=== PATIENT | male | born 1955 | race African-American/Black ===

== ENCOUNTER 2022-03-28 19:34 | Inpatient (IN) | payer MEDICAID ==
[~2022-03-28] VITALS: Ht 172.7 cm; Wt 64.0 kg
--- NOTE | 2022-03-28 19:45 | NUR ---
RYAN FROM [facility] C/O G TUBE OUT OF PLACE. PATIENT AAOX1. CAME WITH NC AT 2LPM. PATIENT HAS IFC ON THE GTUBE SITE TO KEEP IT OPEN. ATTACHED TO MONITOR. VITALS CHECKED.
--- NOTE | 2022-03-28 19:55 | NUR ---
DR DONOHUE ATTEMPTED TO INSERT THE G TUBE SIZES F16 AND F14. THERE WAS A RESISTANCE WHEN HE TRIED TO MANEUVER AND PUSHED. GTUBE INSERTION WAS UNSUCCESSFUL. SO PATIENT IS FOR ADMISSION.
[2022-03-28] MEDS ORDERED: DIATR MEGLU/DIATRIZOATE SODIUM 30 ML BOTTLE (GASTROGRAPHIN) ONE (20:00)
--- NOTE | 2022-03-28 20:00 | NUR ---
EKG DONE AT BEDSIDE
--- NOTE | 2022-03-28 20:28 | NUR ---
SEEN BY BRENDEN NAVA AT BEDSIDE
--- NOTE | 2022-03-28 20:40 | NUR ---
IV CANNULA G18 INSERTED ON RIGHT AC. BLOOD DRAWN AND SENT TO LAB
[2022-03-28 20:57] LABS: CALCIUM, SERUM 9.2 mg/dL (8.5-10.1); CREATININE 0.7 mg/dL (0.6-1.3); POTASSIUM 3.4 mmol/L (3.5-5.1)
[2022-03-28 21:00] LABS: BASOPHILS % (AUTO) 0.3 % (0.0-2.0); EOSINOPHILS % (AUTO) 1.2 % (0.0-6.0); HEMATOCRIT 24 % (39-51); HEMOGLOBIN 7.4 g/dL (13.5-17.5); MEAN CORPUSCULAR HGB CONC 30 g/dl (31.0-36.0); MEAN CORPUSCULAR VOLUME 77 fL (80-96); MONOCYTES # (AUTO) 0.3 K/uL (0.1-1.30); MONOCYTES % (AUTO) 4.7 % (2.0-12.0); NEUTROPHILS # (AUTO) 5.6 K/uL (1.8-8.9); NEUTROPHILS % (AUTO) 79.8 % (43.0-81.0); PLATELET COUNT (AUTO) 318 K/uL (150-450); RED BLOOD CELL COUNT(AUTO) 3.15 MIL/uL (4.5-6.0); WHITE BLOOD COUNT (AUTO) 7.1 K/uL (4.3-11.0)
[2022-03-28] MEDS ORDERED: ACETAMINOPHEN 650 MG/SUPP.RECT RC PRN (21:30)
[2022-03-28] MEDS ORDERED: MORPHINE SULFATE INJ 2 MG/ML DISP.SYRIN IV PRN (21:30)
[2022-03-28] MEDS ORDERED: MAGNESIUM HYDROXIDE 30 ML UDC PO PRN (21:30)
[2022-03-28] MEDS ORDERED: ONDANSETRON HCL/PF 4 MG/2 ML VIAL IVP PRN (21:30)
--- NOTE | 2022-03-28 21:42 | NUR ---
COVID SWAB COLLECTED
--- NOTE | 2022-03-28 22:06 | NUR ---
URINE SPECIMEN SENT TO LAB
[2022-03-28 22:56] LABS: BILIRUBIN,URINE NEGATIVE (NEGATIVE); COLOR,URINE DARK YELLOW (YELLOW); LEUKOCYTE ESTERASE ,URINE MODERATE (NEGATIVE); NITRITE, URINE NEGATIVE (NEGATIVE); PROTEIN,URINE 100 mg/dl (NEGATIVE); UGLUCOSE NEGATIVE (NEGATIVE)
[2022-03-28 23:03] LABS: BACTERIA,URINE Rare /HPF (None Seen); RBC,URINE 0-2 /HPF (0-2); SQUAMOUS EPITHELIAL CELL,UR Few /HPF (None Seen)
--- NOTE | 2022-03-28 23:22 | NUR ---
REPORT GIVEN TO KEI ZHANG
--- NOTE | 2022-03-28 23:27 | NUR ---
PATIENT WHEELED TO ROOM
[2022-03-28 23:35] VITALS: BP 131/80
[2022-03-28] MEDS: IV D5/ 0.9% NACL 1,000 ML IV PRN (23:35)
[2022-03-29] MEDS: ENOXAPARIN SODIUM 40 MG/0.4 ML DISP.SYRIN SQ SCH ×2 (01:47→20:42)
--- NOTE | 2022-03-29 05:41 | NUR ---
RN CLOSING NOTES: RECEIVED FROM THE ER AT 2330 LAST NIGHT DX: DISLODGED GT FROM [facility] NONVERBAL LEFT EYE LI WILL OPEN WILL OPEN WHEN NURSE IS TALKING LOUDLY NOTED RIGHT ORBITAL EYELID SWOLLEN AND EYE NOT OPENING RIGHT EYE PUPIL RESPONDED TO LIGHT - SLOWLY SIZE 3 PUPIL RIGHT ARM FLACCED AND THE HAND SWOLLEN 2+ PLACE ON A PILLOW TO ELEVATE LEFT ARM MOVES FULL RANGE NEEDS MAX ASSIST WHEN TURNED AND CLEANED AND REPOITIONED SACRAL AREAS WITH EXCORIATION NPO ORDERED GI CONSULT ORDERED TO REPLACE PULLED OUT GT
[2022-03-29 06:45] LABS: BASOPHILS % (AUTO) 0.3 % (0.0-2.0); EOSINOPHILS % (AUTO) 1.8 % (0.0-6.0); HEMATOCRIT 24 % (39-51); LYMPHOCYTES # (AUTO) 0.9 K/uL (0.8-4.8); LYMPHOCYTES % (AUTO) 14.4 % (20.0-44.0); MEAN CORPUSCULAR HGB CONC 30 g/dl (31.0-36.0); MEAN CORPUSCULAR VOLUME 77 fL (80-96); MONOCYTES # (AUTO) 0.4 K/uL (0.1-1.30); MONOCYTES % (AUTO) 6.1 % (2.0-12.0); NEUTROPHILS % (AUTO) 77.4 % (43.0-81.0); PLATELET COUNT (AUTO) 312 K/uL (150-450); RED BLOOD CELL COUNT(AUTO) 3.07 MIL/uL (4.5-6.0); WHITE BLOOD COUNT (AUTO) 6.5 K/uL (4.3-11.0)
[2022-03-29 07:01] LABS: CALCIUM, SERUM 9.2 mg/dL (8.5-10.1); CREATININE 0.6 mg/dL (0.6-1.3); PHOSPHORUS 2.8 mg/dL (2.5-4.9); POTASSIUM 3.2 mmol/L (3.5-5.1)
--- NOTE | 2022-03-29 07:32 | NUR ---
RN NOTES - CRITICAL VALUE RECEIVED A CALL AT 0719 FROM LAB REGARDING HGB OF 7 FROM 7.4, REPORTED TO FRANCESCA PALMA AT 0732, ACKNOWLEDGED, NO NEW ORDER GIVEN.
--- NOTE | 2022-03-29 07:35 | NUR ---
MS RN OPENING NOTES RECEIVED PATIENT IN LYING IN BED, NONVERBAL LEFT EYE OPENS WHEN TALKED TO OR TOUCHED, NOTED RIGHT ORBITAL EYELID SWOLLEN, EYES NOT OPENING EVENLY. ON 1 LPM OXYGEN VIA NC SATURATING WELL AT 98% WITHOUT ANY S/SX OF RESPIRATORY DISTRESS. WITH R AC G#20 IV ACCESS WITH D5 NS RUNNING AT 50/ML/HR. G-TUBE SIDE IS COVERED WITH GAUZE AND PAPER TAPE, NO DRAINAGE NOTED. PATIENT IS ON NPO AND WITH PENDING PROCEDURE TO REINSERT G-TUBE. SAFETY MEASURES IN PLACE: BED AT LOWEST POSITION, LOCKED, BED ALARM ON, TRAY TABLE AND CALL LIGHT WITHIN REACH. WILL CONTINUE TO MONITOR DURING MY SHIFT.
[2022-03-29 08:00] VITALS: BP 135/83
[2022-03-29] MEDS: PANTOPRAZOLE 40 MG VIAL IV SCH (08:45)
[2022-03-29 08:51] VITALS: BP 136/82
[2022-03-29] MEDS: POTASSIUM CL. PREMIX PERIPHER. 50 ML IV SCH ×4 (08:58→12:22)
--- NOTE | 2022-03-29 09:04 | NUR ---
RN NOTES - MD CONSULT DR PAL AT BEDSIDE TRIED TO REINSERT THE G-TUBE BUT TO NO AVAIL, PATIENT WILL BE FOR SURGERY.
[2022-03-29] MEDS ORDERED: FERR300L GT (09:57)
[2022-03-29] MEDS ORDERED: MULT-447 GT (09:57)
[2022-03-29] MEDS ORDERED: CALC1TAB30 GT (09:57)
[2022-03-29] MEDS ORDERED: DOCU50LI GT (09:57)
[2022-03-29] MEDS ORDERED: LACT-209 GT (09:57)
[2022-03-29] MEDS ORDERED: ARGI1POW13 GT (09:57)
[2022-03-29] MEDS ORDERED: ASPI-1169 GT (09:57)
[2022-03-29] MEDS ORDERED: ACET-2605 GT (09:57)
[2022-03-29] MEDS ORDERED: CRAN3875 GT (09:57)
[2022-03-29] MEDS ORDERED: ACET-868 GT (09:57)
[2022-03-29] MEDS ORDERED: POLY15DR40 EACHEYE (09:57)
[2022-03-29] MEDS ORDERED: FURO-145 GT (09:57)
[2022-03-29] MEDS ORDERED: ATOR40TA GT (09:57)
[2022-03-29] MEDS ORDERED: LANS30CA56 GT (09:57)
[2022-03-29] MEDS ORDERED: CRAN425C6 GT (09:57)
[2022-03-29] MEDS ORDERED: POLY17PO4 GT (09:57)
--- NOTE | 2022-03-29 12:39 | NUR ---
RN NOTES - VTE SCORE OF 4 - DVT PUMPS APPLIED
--- NOTE | 2022-03-29 14:28 | NUR ---
RN NOTES - SURGERY CONSENTS SECURED CALLED PASCUAL AMADOR, SISTER, TO SECURE CONSENTS FOR G TUBE INSERTION PROCEDURE TOMORROW, 03/30/2022. WITNESSED BY KEI OWENS.
[2022-03-29 16:00] VITALS: BP 138/85
[2022-03-29 16:09] VITALS: BP 138/85
--- NOTE | 2022-03-29 17:57 | NUR ---
RN NOTES SISTER PASCUAL CALLED TO CHECK THE STATUS OF THE PATIENT, INFORMED PENDING PROCEDURES.
--- NOTE | 2022-03-29 18:47 | NUR ---
MS RN CLOSING NOTES PATIENT IN LYING IN BED, NONVERBAL LEFT EYE OPENS WHEN TALKED TO OR TOUCHED, NOTED RIGHT ORBITAL EYELID SWOLLEN, EYES NOT OPENING EVENLY. STILL ON 1 LPM OXYGEN VIA NC SATURATING WELL AT 97% WITHOUT ANY S/SX OF RESPIRATORY DISTRESS. WITH R AC G#20 IV ACCESS WITH D5 NS RUNNING AT 50/ML/HR. G-TUBE SIDE IS COVERED WITH GAUZE AND PAPER TAPE, NO DRAINAGE NOTED. PATIENT IS ON NPO AND WITH PENDING PROCEDURE TO REINSERT G-TUBE. ALL NEEDS ATTENDED, ALL DUE MEDS GIVEN. WOUND CARE GIVEN, TURNED AND REPOSITIONED. SAFETY MEASURES MAINTAINED: BED AT LOWEST POSITION, LOCKED, BED ALARM ON, TRAY TABLE AND CALL LIGHT WITHIN REACH. WILL ENDORSE TO THE RESEARCH & INSIGHTS EXECUTIVE NURSE.
[2022-03-29 20:00] VITALS: BP 140/92
--- NOTE | 2022-03-29 20:23 | NUR ---
A/O X 1, OPENS LEFT EYE ONLY. RIGHT PERIORBITAL AREA IS SWOLLEN AND EYE IS CLOSED. PATIENT IS NON-VERBAL AND BEDBOUND. ASPIRATION PRECAUTIONS. NPO FOR SURGERY TOMORROW TO REPLACE G-TUBE IN PROPER POSITION. IV ACCESS TO RAC #20G. IV SITE CLEAN, DRY AND LINE IS INTACT. SAFETY PRECAUTIONS ARE IN PLACE: BED IN LOWEST AND LOCKED POSITION, SIDE RAILS UP X 2, CALL LIGHT WITHIN REACH. WILL CONTINUE TO MONITOR.
[2022-03-29] MEDS: IV D5/ 0.9% NACL 1,000 ML IV PRN (23:56)
--- NOTE | 2022-03-30 05:25 | NUR ---
MS RN CLOSING NOTE PATIENT IS NPO FOR SURGERY THIS MORNING TO REPLACE HIS G-TUBE. SURGICAL CHECKLIST DONE AND CONSENTS SIGNED. IV ACCESS TO RAC #20G RUNNING D5NS AT 50 ML/HR. NO SIGNS OF PAIN OR DISTRESS NOTED. WILL CONTINUE TO MONITOR.
--- NOTE | 2022-03-30 07:40 | NUR ---
MS RN OPENING NOTES RECEIVED PATIENT IN LYING IN BED, ASLEEP, EASILY AROUSABLE WITH ONE EYE (LEFT) OPENING TO TOUCH AND SOUND. RIGHT EYE IS SHUT, ON 1 LPM OXYGEN VIA NC SATURATING WELL AT 98% WITHOUT ANY S/SX OF RESPIRATORY DISTRESS. WITH R AC G#20 IV ACCESS WITH D5 NS RUNNING AT 50/ML/HR. G-TUBE SIDE IS COVERED WITH GAUZE AND PAPER TAPE, NO DRAINAGE NOTED. PATIENT IS ON NPO AND WITH PENDING PROCEDURE TO REINSERT G-TUBE. WITH DVT PUMPS ON BOTH LEGS. SAFETY MEASURES IN PLACE: BED AT LOWEST POSITION, LOCKED, BED ALARM ON, TRAY TABLE AND CALL LIGHT WITHIN REACH. WILL CONTINUE TO MONITOR DURING MY SHIFT.
--- NOTE | 2022-03-30 07:45 | NUR ---
RN NOTES - MIDLINE INSERTION REQUEST LAB CALLED TO INFORM THAT THEY WERE NOT ABLE TO DRAW BLOOD AND RECOMMENDS MIDLINE INSERTION, WILL ENDORSE TO THE CHARGE NURSE FOR APPROVAL AND SCHEDULING TODAY.
[2022-03-30 08:00] VITALS: BP 145/98
--- NOTE | 2022-03-30 08:02 | NUR ---
RN NOTES CALLED SURGERY TO INQUIRE FOR THE SCHEDULE OF G-TUBE INSERTION, NO SCHEDULE YET PER OR NURSE. WILL CALL US IF THERE'S ANY UPDATE.
[2022-03-30] MEDS: PANTOPRAZOLE 40 MG VIAL IV SCH (08:15)
--- NOTE | 2022-03-30 09:04 | NUR ---
RN NOTES WOUND NURSE LORA AT BEDSIDE - RECOMMENDS CONDOM CATH AND Z-GUARD TO PREVENT FURTHER SKIN BREAKDOWN. OFFLOADING AND TURNING DONE WELL.
--- NOTE | 2022-03-30 09:04 | NUR ---
WOUND CARE CONSULT: PT PRESENTS WITH SACRAL SCARRING WHICH EXTENDS TO BUTTOCKS AND INCONTINENCE ASSOCIATED SKIN DAMAGE OVER SCARRING, PRESENT ON ADMISSION. DISCOLORATION NOTED TO FEET. RECOMMENDATIONS MADE FOR SKIN PROTECTION. DISCUSSED WITH NURSING STAFF. PT IS ON KADIE ISOFLEX LOW AIRLOSS BED. MD IN AGREEMENT WITH PLAN OF CARE.
--- NOTE | 2022-03-30 09:21 | NUR ---
RN NOTES INSERTED CONDOM CATHETER ATTACHED TO LEG DRAINAGE BAG PER WOUND CONSULT RECOMMENDATION.
[2022-03-30] MEDS ORDERED: Z GUARD REMEDY 4 OZ OINT TP PRN (09:30)
[2022-03-30] MEDS: Z GUARD REMEDY 4 OZ OINT TP SCH (10:53)
[2022-03-30 11:50] LABS: BASOPHILS % (AUTO) 0.8 % (0.0-2.0); EOSINOPHILS % (AUTO) 3.3 % (0.0-6.0); HEMATOCRIT 25 % (39-51); HEMOGLOBIN 7.5 g/dL (13.5-17.5); LYMPHOCYTES # (AUTO) 1.2 K/uL (0.8-4.8); LYMPHOCYTES % (AUTO) 24.3 % (20.0-44.0); MEAN CORPUSCULAR HGB CONC 30 g/dl (31.0-36.0); MEAN CORPUSCULAR VOLUME 77 fL (80-96); MONOCYTES # (AUTO) 0.4 K/uL (0.1-1.30); MONOCYTES % (AUTO) 7.5 % (2.0-12.0); NEUTROPHILS # (AUTO) 3.1 K/uL (1.8-8.9); NEUTROPHILS % (AUTO) 64.1 % (43.0-81.0); PLATELET COUNT (AUTO) 328 K/uL (150-450); RED BLOOD CELL COUNT(AUTO) 3.24 MIL/uL (4.5-6.0); WHITE BLOOD COUNT (AUTO) 4.8 K/uL (4.3-11.0)
[2022-03-30 12:07] LABS: CALCIUM, SERUM 9.1 mg/dL (8.5-10.1); CREATININE 0.7 mg/dL (0.6-1.3); POTASSIUM 3.6 mmol/L (3.5-5.1)
--- NOTE | 2022-03-30 13:39 | NUR ---
RN NOTES CONTACTED PASCUAL, ([phone]) TO GIVE HER AN UPDATE REGARDING PT'S PENDING G-TUBE INSERTION STATUS.
[2022-03-30 16:00] VITALS: BP 156/94
--- NOTE | 2022-03-30 18:53 | NUR ---
MS RN CLOSING NOTES PATIENT IN LYING IN BED, NONVERBAL LEFT EYE OPENS WHEN TALKED TO OR TOUCHED, STILL ON 1 LPM OXYGEN VIA NC SATURATING WELL AT 97% WITHOUT ANY S/SX OF RESPIRATORY DISTRESS. WITH R AC G#20 IV ACCESS WITH D5 NS RUNNING AT 50 ML/HR. G-TUBE SITE IS COVERED WITH GAUZE AND PAPER TAPE, NO DRAINAGE NOTED. PATIENT IS ON NPO AND WITH PENDING PROCEDURE TO REINSERT G-TUBE. INFORMED SISTER PASCUAL THAT STILL PENDING. WITH CONDOM CATH AND LEG DRAINAGE BAG. ALL NEEDS ATTENDED, WOUND CARE GIVEN, TURNED AND REPOSITIONED. SAFETY MEASURES MAINTAINED: BED AT LOWEST POSITION, LOCKED, BED ALARM ON, TRAY TABLE AND CALL LIGHT WITHIN REACH. WILL ENDORSE TO THE AUTO WASHER NURSE.
--- NOTE | 2022-03-30 20:27 | NUR ---
RECEIVED IN BED RIGHT EYE CLOSED LEFT EYE OPEN WILL LOOD AT NURSE WHEN NAME SPOKEN EXPLAINED TO PATIENT WHEN I NEED TO TOUCH HIM OR GIVE MEDICATION APPEARS HE IS AWARE TO SOME EXTENT GI MD GOING TO REPLACE THE GT TOMORROW WAS HERE TO SEE PATIENT
[2022-03-30 20:33] VITALS: BP 142/83
[2022-03-30] MEDS: ENOXAPARIN SODIUM 40 MG/0.4 ML DISP.SYRIN SQ SCH (21:09)
[2022-03-30 22:56] LABS: BAND % (MANUAL) 4 % (0.0-5.0); BASOPHILS % (MANUAL) 0 % (0.0-2.0); EOSINOPHILS % (MANUAL) 2 % (0-4); LYMPHOCYTES % (MANUAL) 21 % (16-48); MONOCYTES % (MANUAL) 9 % (0-11.0); NEUTROPHILS % (MANUAL) 64 (42-76)
[2022-03-31] MEDS: IV D5/ 0.9% NACL 1,000 ML IV PRN ×2 (00:11→17:48)
--- NOTE | 2022-03-31 04:38 | NUR ---
CLOSING NOTES: ALERT TO NURSE AT HIS BEDSIDE WITH THE LEFT EYE HE WILL LOOK AT ME NON VERBAL NOTED WILL ANSWER SIMPLE QUESTIONS OR ACKNOWLEDGE ME WHEN I SPEAK TO HIM BY USING THE LEFT EYE 1 BLINK "YES" "NO" IS 2 BLINKS S/P GT TUBE SITE CLEAN AND SMALL COVERED WITH 4 X 4 GAUZE MD Samuels HERE TO SEE THE PATIENT STATED HE WILL DO THE PATIENT THIS AM PATIENT HAS BEEN NPO SINCE 03/28 SINCE THE GT WAS DISLODGED WHILE AT THE [facility]. EXCORATION ON THE BUTTCK KEPT CLEAN AND ZGUARD APPLIED WITH FOAM DRESING OF HIS BACK ONTO HIS SIDES THRU THE NIGHT
[2022-03-31 06:44] LABS: BASOPHILS % (AUTO) 0.4 % (0.0-2.0); EOSINOPHILS % (AUTO) 2.4 % (0.0-6.0); HEMATOCRIT 28 % (39-51); HEMOGLOBIN 7.6 g/dL (13.5-17.5); LYMPHOCYTES # (AUTO) 0.8 K/uL (0.8-4.8); LYMPHOCYTES % (AUTO) 20.8 % (20.0-44.0); MEAN CORPUSCULAR HGB CONC 27 g/dl (31.0-36.0); MEAN CORPUSCULAR VOLUME 83 fL (80-96); MONOCYTES # (AUTO) 0.2 K/uL (0.1-1.30); MONOCYTES % (AUTO) 5.8 % (2.0-12.0); NEUTROPHILS # (AUTO) 2.9 K/uL (1.8-8.9); NEUTROPHILS % (AUTO) 70.6 % (43.0-81.0); PLATELET COUNT (AUTO) 325 K/uL (150-450); RED BLOOD CELL COUNT(AUTO) 3.33 MIL/uL (4.5-6.0); WHITE BLOOD COUNT (AUTO) 4.1 K/uL (4.3-11.0)
[2022-03-31 07:11] LABS: CALCIUM, SERUM 9.4 mg/dL (8.5-10.1); CREATININE 0.6 mg/dL (0.6-1.3); PHOSPHORUS 2.9 mg/dL (2.5-4.9); POTASSIUM 3.6 mmol/L (3.5-5.1)
[2022-03-31 08:00] VITALS: BP 146/91
--- NOTE | 2022-03-31 08:20 | NUR ---
OUTREACH COORDINATOR OPENING NOTES RECEIVED PATIENT IN BED,AWAKE, NONVERBAL LEFT EYE OPENS WHEN TALKED TO OR TOUCHED, RIGHT EYE SWOLLEN AND CLOSED. PATIENT ON O2 2L VIA NC, SATURATING WELL AT 96% WITHOUT ANY S/SX OF RESPIRATORY DISTRESS. WITH RAC 20G IV ACCESS WITH D5 NS RUNNING AT 50 ML/HR. G-TUBE SITE IS COVERED WITH GAUZE AND PAPER TAPE, NO DRAINAGE NOTED. HAS CONDOM CATH. ALL NEEDS ATTENDED AT THIS TIME. SAFETY MEASURES IN PLACE: BED AT LOWEST POSITION, LOCKED, BED ALARM ON, TRAY TABLE AND CALL LIGHT WITHIN REACH. WILL CONTINUE TO MONITOR.
[2022-03-31] MEDS: PANTOPRAZOLE 40 MG VIAL IV SCH (08:47)
[2022-03-31] MEDS: Z GUARD REMEDY 4 OZ OINT TP SCH (09:10)
[2022-03-31 16:00] VITALS: BP 148/96
--- NOTE | 2022-03-31 19:08 | NUR ---
RN CLOSING NOTES PATIENT IN BED, AWAKE, NONVERBAL. LEFT EYE OPENS WHEN TALKED TO OR TOUCHED, RIGHT EYE SWOLLEN AND CLOSED. PATIENT ON O2 2L VIA NC, SATURATING WELL AT 96% WITHOUT ANY S/SX OF RESPIRATORY DISTRESS. WITH RAC 20G IV ACCESS WITH D5 NS AT 50 ML/HR. G-TUBE SITE IS COVERED WITH GAUZE AND PAPER TAPE, NO DRAINAGE NOTED. HAS CONDOM CATH, INTACT. . ALL NEEDS ATTENDED AT THIS TIME. SAFETY MEASURES IN PLACE: BED AT LOWEST POSITION, LOCKED, BED ALARM ON, TRAY TABLE AND CALL LIGHT WITHIN REACH. WILL ENDORSE TO NIGHT NURSE.
--- NOTE | 2022-03-31 19:45 | NUR ---
MS RN NOTE RECEIVED CALL FROM RN IN RECOVERY ROOM, PATIENT S/P GT PLACEMENT BY DR. OWENS. PATIENT ON 2 LPM O2 VIA NASAL CANNULA. ORDERS PER MD TO START GT FEEDING IN AM
--- NOTE | 2022-03-31 19:52 | NUR ---
MS RN OPENING NOTE PATIENT RECEIVED FROM OR S/P GT REPLACEMENT. PATIENT NON-VERBAL, OPENS EYES. PATIENT STABLE ON 2 LPM OF O2 VIA NASAL CANNULA, NO S/S OF DISTRESS OR SOB NOTED, BREATHING EVEN AND UNLABORED. G-TUBE ON LEFT UPPER ABDOMEN NOTED, MINIMAL BLEEDING ON DRESSING, WILL CONTINUE TO MONITOR. CONDOM CATH IN PLACE AND DRAINING YELLOW URINE VIA GRAVITY. IV ACCESS ON RAC #20G INTACT, CONNECTED BACK TO IVF, INFUSING D5NS @ 50 ML/HR. PATIENT NPO, ORDERS TO START GT FEEDING IN AM PER DR. OWENS. SAFETY MEASURES IN PLACE: CALL LIGHT WITHIN REACH, SIDE RAILS UP X 3, BED LOCKED IN LOWEST POSITION, BED ALARM ON. WILL CONTINUE TO MONITOR PATIENT
[2022-03-31 20:00] VITALS: BP 165/95
--- NOTE | 2022-03-31 20:56 | NUR ---
MS RN NOTE CONTACTED HERPETOLOGIST MD REGARDING WHETHER TO GIVE OR HOLD LOVENOX 40 MG SQ SINCE PATIENT JUST RETURNED FROM OR FOR GT REPLACEMENT AN HOUR AGO. PER HERPETOLOGIST MD HOLD TONIGHT AND RESUME LOVENOX TOMORROW
[2022-03-31] MEDS: ENOXAPARIN SODIUM 40 MG/0.4 ML DISP.SYRIN SQ SCH (20:59)
[2022-03-31 21:35] VITALS: BP 156/97
--- NOTE | 2022-04-01 06:36 | NUR ---
MS RN CLOSING NOTE PATIENT SLEEPING IN BED, PATIENT NON-VERBAL, OPENS LEFT EYE, RIGHT EYE SWOLLEN. PATIENT STABLE ON 2 LPM OF O2 VIA NASAL CANNULA, NO S/S OF DISTRESS OR SOB NOTED, BREATHING EVEN AND UNLABORED. PATIENT S/P GTUBE REPLACEMENT, PER DR. OWENS START TUBE FEEDING IN AM, DIETARY CONSULT ORDERED FOR TUBE FEEDING RECOMMENDATION. CONDOM CATH IN PLACE AND DRAINING YELLOW URINE WITH SEDIMENT VIA GRAVITY. IV ACCESS ON RAC #20G INTACT AND INFUSING D5NS @ 50 ML/HR. MEDICATIONS GIVEN ORDERED, PT NEEDS MET THROUGHOUT SHIFT, PT TURNED Q2H. SAFETY MEASURES IN PLACE: CALL LIGHT WITHIN REACH, SIDE RAILS UP X 3, BED LOCKED IN LOWEST POSITION, BED ALARM ON. WILL ENDORSE TO DAYSHIFT NURSE FOR CONTINUITY OF CARE
--- NOTE | 2022-04-01 07:55 | NUR ---
MS RN NOTES RECEIVED PATIENT AWAKE IN BED WITH OPEN EYES. PATIENT NON-VERBAL. PATIENT STABLE ON 2 LPM OF O2 VIA NASAL CANNULA, NO S/S OF DISTRESS OR SOB NOTED, BREATHING EVEN AND UNLABORED. G-TUBE ON LEFT UPPER ABDOME, MINIMAL BLEEDING ON DRESSING, WILL CONTINUE TO MONITOR. CONDOM CATH IN PLACE AND DRAINING YELLOW URINE VIA GRAVITY. IV ACCESS ON RAC #20G INTACT INFUSING D5NS @ 50 ML/HR. PATIENT NPO, WILL FOLLOW UP FOR FEEDING. ALL SAFETY MEASURES IN PLACE: CALL LIGHT WITHIN REACH, SIDE RAILS UP X 3, BED LOCKED IN LOWEST POSITION, BED ALARM ON. HEAD OF THE BED ELEVATED FOR ASPIRATION PRECAUTION. WILL CONTINUE TO MONITOR THE PATIENT
[2022-04-01 08:00] VITALS: BP 135/91
[2022-04-01] MEDS: PANTOPRAZOLE 40 MG VIAL IV SCH (08:48)
[2022-04-01] MEDS ORDERED: JEVITY 1.2 CAL 1,000 ML BOTTLE GT SCH (10:00)
[2022-04-01] MEDS: Z GUARD REMEDY 4 OZ OINT TP SCH (10:02)
[2022-04-01] MEDS ORDERED: JEVITY 1.2 CAL 1,000 ML BOTTLE GT PRN ×2 (10:20)
--- NOTE | 2022-04-01 12:01 | NUR ---
RN NOTES CALLED [facility] WITH PHONE NUMBER [phone], AT 7211 AND GAVE REPORT TO ELIF CHOUDHURY. PER SCALE ATTENDANTCREATIVE PRODUCER I INFORMED THE FACILITY NURSE THAT THE PATCH WORKER TIME IS NOT EXACT YET. IRT WILL BE FROM 30 MINUTES TO 3 HOURS. THE FACILITY NURSE SATED WILL INFORM THEIR SCALE ATTENDANT.
--- NOTE | 2022-04-01 15:00 | NUR ---
RN NOTES COOK FRY EARNEST STATED THE SURFACER OPERATOR TIME WILL BE AT 1530. AND THE FACILITY ADMISSION IS AWARE OF THE TIME. THE ROOM ASSIGNED TO THE PATIENT IS [phone].
[2022-04-01 16:00] VITALS: BP 127/78
--- NOTE | 2022-04-01 16:30 | NUR ---
RN NOTES DISCHARGE PATIENT IN STABLE CONDITION WITH STABLE VITAL SIGNS. NO PAIN NOTED. NO SOB NOTED. NO DISTRESS NOTED. IV SITE REMOVED COVERED WITH DRY DRESSING , NO BLEEDING NOTED. GTUBE SITE INTACT. NO RESIDUAL NOTED. NO BLEEDING TO THE SITE NOTED. GTUBE WAS IN PLACE. FLUSHED WITH WATER BEFORE GOING. ALL NEEDS ATTENDED. DRESSING CHANGED. TOOK PICTURE OF THE SACRUM. 2 MT WITH AMBULANCE CAME.NO BELONGINGS WITH THE PATIENT. PATIENT LEFT HOSPITAL WITH AMBULANCE AT 1630 IN STABLE CONDITION WITH STABLE VITAL SIGNS. MD AND CHARGE NURSE AWARE OF THE DISCHARGE.
== END 2022-04-01 16:30 | DRG 252 ==
LOC: ER 19:44 → MED 23:06
PROVIDERS: ADMIT Nurse Practitioner Acute Care; ATTEND Nurse Practitioner Acute Care
PROC: 0DH63UZ Insertion of Feeding Device into Stomach, Percutaneous Approach (ICD-10-PCS; principal; 2022-03-31)
DX: K94.23 Gastrostomy malfunction (principal); J96.20 Acute and chronic respiratory failure, unspecified whether with hypoxia or hypercapnia; G93.41 Metabolic encephalopathy; Z86.73 Personal history of transient ischemic attack (TIA), and cerebral infarction without residual deficits; D68.59 Other primary thrombophilia; Z20.822 Contact with and (suspected) exposure to COVID-19; Y84.8 Other medical procedures as the cause of abnormal reaction of the patient, or of later complication, without mention of misadventure at the time of the procedure; Y92.129 Unspecified place in nursing home as the place of occurrence of the external cause; I11.0 Hypertensive heart disease with heart failure; I50.9 Heart failure, unspecified; F03.90 Unspecified dementia, unspecified severity, without behavioral disturbance, psychotic disturbance, mood disturbance, and anxiety; K21.9 Gastro-esophageal reflux disease without esophagitis; R13.10 Dysphagia, unspecified; Z74.09 Other reduced mobility; D50.9 Iron deficiency anemia, unspecified; E78.5 Hyperlipidemia, unspecified; K29.70 Gastritis, unspecified, without bleeding; Z74.01 Bed confinement status; Z99.81 Dependence on supplemental oxygen
CPT/HCPCS: 36415; 43761; 71045-TC; 80048-TC; 81001; 83735-TC; 84100-TC; 85025-TC; 85730-TC; 87081-TC; 87086-TC; 94799-TC; A4349; C9113; C9803; G0378; J0690; J1650; J2704; J3480; J3490; J7030; J7042; Q9963